=== PATIENT | female | born 1965 | race Caucasian/White ===

== ENCOUNTER 2021-01-14 10:47 | Inpatient (IN) | payer MEDICAID, SELFPAY ==
[2021-01-14] VITALS (81 sets, daily range): BP systolic 53–117; BP diastolic 35–87; PULSE 58–106; RESP 10–25; TEMP 36.4–36.9; O2SAT 77–98; BMI 38.0
--- NOTE | 2021-01-14 11:03 | XR_ITS ---
WS: [id number] Portable AP semiupright chest, 01/14/2021 Clinical Data: dyspnea/cough Comparison: None. Findings: There is a small right pleural effusion. The heart is enlarged. There are calcified granulo mas in both apurva. No nodules, masses or pneumothorax is seen. Monitor leads on the chest wall. There is no pneumonia. The aortic arch and descending aorta show tortuosity. XR/XR chest 1V portable [id number] Impression: 1. Small right pleural effusion. 2. Cardiomegaly and atherosclerosis.
--- NOTE | 2021-01-14 11:03 | CT_ITS ---
WS: [id number] CT HEAD NONCONTRAST HISTORY: altered mental status TECHNIQUE: Contiguous axial imaging performed through the brain in 2.5 mm imaging. Bone and soft tiss ue windows. Sagittal and coronal reformats reviewed. All CT scans at [facility] use at ast one of these dose optimization techniques: automated exposure control; mA and/or kV adjustment pe r patient size (includes targeted exams where dose is matched to clinical indication); or iterative r econstruction. DLP: 1652.7 mGy.cm COMPARISON: None available. Large amount of artifact through the brain in part due to motion. No large areas of hemorrhage. No mi dline shift or mass effect. No loss of the sweet-white matter differentiation. No atrophy or prior infarcts or herniation. Ventricles: Normal size with no hydrocephalus. No inferior displacement of the cerebellar tonsils. Paranasal sinuses: Mucoperiosteal thickening in the ethmoid air cells. Mastoid air cells: Mild thickening of the LEFT mastoid air cells from prior mastoiditis. Calvarium and scalp: Skull is intact with no soft tissue edema or swelling. CT/CT head wo con* [id number] IMPRESSION: 1. Study limited by motion artifact. 2. No evidence for acute intracranial process identified. No hemorrhage or mas s effect.
--- NOTE | 2021-01-14 11:03 | ECG_ITS ---
[facility] Test Date: 2021-01-14 Pat Name: Mya Muñoz Department: Room: Gender: Female Automatic Edger: : 1965 Requested By: Marco Antonio Hobson Order Number: [id number] Reading MD: VASQUEZ CONNORS Measurements Intervals [place] Rate: 99 P: 40 AR: 162 QRS: -25 QRSD: 102 T: 0 QT: 386 QTc: 497 Interpretive Statements SINUS RHYTHM POSSIBLE ANTERIOR MYOCARDIAL INFARCTION [30 ms Q WAVE IN V3/V4, OR R < 0.2 mV IN V4], OF INDETERMINATE AGE INTERPRETATION BASED ON A DEFAULT AGE OF 40 YEARS No previous ECG available for comparison Electronically Signed On 01-14-2021 14:26:55 CDT by VASQUEZ CONNORS [id number]
--- NOTE | 2021-01-14 11:05 | ED_ITS ---
HPI - Altered Mental Status General: Chief Complaint: Altered Mental Status Stated Complaint: overdose/ ams Time Seen by Provider: 01/14/21 10:54 History of Present Illness: HPI narrative: 55-year-old female who is residing at a local homeless correction. She became unresponsive. And EMS was called. She is not responding to verbal or painful stimuli other than the few moans no coherent verbal responses. She has a history of being previously prescribed benzodiazepines specifically Xanax. She has no obvious injuries cannot give us any specific complaints. MD complaint: altered mental status Onset (ago): unknown Severity: severe Consistency of symptoms: Waxing and Waning Review of Systems General: Reports: ROS unobtainable due to mental status Physical Exam HENMT: COMMON NORMALS: normocephalic and atraumatic HEAD & SCALP: normocephalic and atraumatic Neck/C-Spine: COMMON NORMALS: no JVD Resp: COMMON NORMALS: normal respiratory effort, No retractions, No use of accessory muscles and clear to auscultation bilaterally AUSCULTATION: clear to auscultation bilaterally Cardio: COMMON NORMALS: no JVD, regular rate, regular rhythm and No murmurs present (Cardio) RATE: regular rate RHYTHM: regular rhythm GI: COMMON NORMALS: Soft to palpation and No hepatosplenomegaly present AUSCULTATION: Yes normoactive bowel sounds PALPATION: Yes Soft to palpation, No Tenderness to palpation present (GI), No Guarding due to palpation present (GI) and Yes No hepatosplenomegaly present Extremity: COMMON NORMALS: normal to inspection, capillary refill normal, no clubbing, cyanosis or edema, no calf tenderness and no pedal edema Skin: COMMON NORMALS: no rashes or lesions noted GENERAL SKIN EXAM: no rashes or lesions noted Course Vital Signs: Vital signs: Vital Signs Temperature 98.4 F 01/14/21 10:56 Pulse Rate 92 01/14/21 14:00 Respiratory Rate 19 H 01/14/21 14:00 Blood Pressure 94/77 01/14/21 14:00 Pulse Oximetry 96 01/14/21 14:00 MDM - Altered Mental Status MDM Narrative: Medical decision making narrative: Patient placed on BiPAP for assistance with ventilation. She had some sonorous respirations but otherwise is not requiring any intubation at this time. She is positive for benzodiazepines on her drug screen and think she will need to be monitored and then further evaluated as to whether or not this was a suicide attempt. Discussed with hospitalist orders written. Lab Data: Labs: Lab Results 01/14/21 01/14/21 01/14/21 Range/Units 11:00 11:49 11:49 WBC 6.1 (4.0-10.0) 10^3/ uL RBC 4.17 (4.1-5.3) 10^6/u L Hgb 12.7 (11.5-15.3) g/dL Hct 41.4 (37.0-47.0) % MCV 99.3 H (81-99) fL MCH 30.5 (28.0-34.0) pg MCHC 30.7 (30.0-36.0) g/dL RDW 12.7 (12.1-15.1) % Plt Count 190 (130-400) 10^3/c mm MPV 11.2 H (7.4-10.4) fL Neut % (Auto) 60.7 % Lymph % (Auto) 22.5 % [place] % (Auto) 10.3 % Eos % (Auto) 4.7 % Baso % (Auto) 0.8 % Neut # (Auto) 3.72 (1.8-7.7) 10^3/u L Lymph # (Auto) 1.4 (0.8-4.8) 10^3/u L [place] # (Auto) 0.6 (0.2-0.9) 10^3/u L Eos # (Auto) 0.3 (0.0-0.8) 10^3/u L Baso # (Auto) 0.1 (0.0-0.1) 10^3/u L Nucleated RBC % (a uto) 0 % Nucleated RBCs # 0.0 /100WBC Specimen Type Arterial Sample Site Radial, left ABG pH 7.34 L (7.35-7.45) ABG pCO2 50.1 H (35-45) mmHg ABG pO2 73.6 L (80.0-100.0) mmH g ABG HCO3 27.2 H (22-26) mmol/L ABG O2 Saturation 94.3 ABG Base Excess 0.5 (-2.0-2.0) mmol/ L Eyad Test Pos A-a O2 Gradient 12.2 H (5-10) mmHg Hematocrit 48.1 H (37-47) % Hgb O2 Saturation 91.9 L (95-100) % Carboxyhemoglobin 2.0 (0.4-20.1) %THgb Methemoglobin 0.6 (0.4-1.5) % Total Hemoglobin 15.7 (12-16) g/dL Sodium 139.0 139 (131-143) mmol/L Potassium 4.5 4.3 (3.5-5.0) mmol/L Glucose 104.0 92 (70-115) mg/dL Ionized Calcium 1.2 (1.1-1.4) mmol/L O2 Delivery Device Nc O2 Liters/Min 3.0 % FiO2 32.0 % Retail Client Solutions Consultant ID Amh Chloride 106 (98-107) mmol/L Carbon Dioxide 25 (22-29) mmol/L Anion Gap 12.3 (5-19) BUN 20 (6-20) mg/dL Creatinine 0.9 (0.5-0.9) mg/dL GFR Calculation 64.5 L (90-130) mL/min Calculated Osmolal ity 290 (285-295) mOsm/k g Calcium 8.8 (8.5-10.5) mg/dL Magnesium 1.8 (1.7-2.3) mg/dL Total Bilirubin 0.2 (0.15-1.2) mg/dL AST 33 H (0-32) U/L ALT 28 (0-33) U/L Alkaline Phosphata se 96 (35-105) IU/L Creatine Kinase 59 (26-192) U/L Troponin T Baselin e (0-10) ng/L Total Protein 6.5 L (6.6-8.7) g/dL Albumin 3.5 (3.5-5.2) g/dL Globulin 3.0 (1.3-4.6) g/dL Urine Color (Yellow) Urine Appearance (CLEAR) Urine pH (5-7) Ur Specific Gravit y (1.005-1.030) Urine Protein (Negative) Urine Glucose (UA) (Normal) Urine Ketones (Negative) Urine Blood (Negative) Urine Nitrate (Negative) Urine Bilirubin (Negative) Urine Urobilinogen (Negative) mg/dL Ur Leukocyte Willow ase (Negative) Urine Opiates Scre en (Negative) ng/mL Ur Barbiturates Sc reen (Negative) ng/mL Ur Phencyclidine S crn (Negative) ng/mL Ur Amphetamines Sc reen (Negative) ng/mL U Benzodiazepines Scrn (Negative) ng/mL Urine Cocaine Scre en (Negative) ng/mL U Marijuana (THC) Screen (Negative) ng/mL 01/14/21 01/14/21 01/14/21 Range/Units 11:49 12:00 12:00 WBC (4.0-10.0) 10^3/ uL RBC (4.1-5.3) 10^6/u L Hgb (11.5-15.3) g/dL Hct (37.0-47.0) % MCV (81-99) fL MCH (28.0-34.0) pg MCHC (30.0-36.0) g/dL RDW (12.1-15.1) % Plt Count (130-400) 10^3/c mm MPV (7.4-10.4) fL Neut % (Auto) % Lymph % (Auto) % [place] % (Auto) % Eos % (Auto) % Baso % (Auto) % Neut # (Auto) (1.8-7.7) 10^3/u L Lymph # (Auto) (0.8-4.8) 10^3/u L [place] # (Auto) (0.2-0.9) 10^3/u L Eos # (Auto) (0.0-0.8) 10^3/u L Baso # (Auto) (0.0-0.1) 10^3/u L Nucleated RBC % (a uto) % Nucleated RBCs # /100WBC Specimen Type Sample Site ABG pH (7.35-7.45) ABG pCO2 (35-45) mmHg ABG pO2 (80.0-100.0) mmH g ABG HCO3 (22-26) mmol/L ABG O2 Saturation ABG Base Excess (-2.0-2.0) mmol/ L Eyad Test A-a O2 Gradient (5-10) mmHg Hematocrit (37-47) % Hgb O2 Saturation (95-100) % Carboxyhemoglobin (0.4-20.1) %THgb Methemoglobin (0.4-1.5) % Total Hemoglobin (12-16) g/dL Sodium (131-143) mmol/L Potassium (3.5-5.0) mmol/L Glucose (70-115) mg/dL Ionized Calcium (1.1-1.4) mmol/L O2 Delivery Device O2 Liters/Min % FiO2 % Retail Client Solutions Consultant ID Chloride (98-107) mmol/L Carbon Dioxide (22-29) mmol/L Anion Gap (5-19) BUN (6-20) mg/dL Creatinine (0.5-0.9) mg/dL GFR Calculation (90-130) mL/min Calculated Osmolal ity (285-295) mOsm/k g Calcium (8.5-10.5) mg/dL Magnesium (1.7-2.3) mg/dL Total Bilirubin (0.15-1.2) mg/dL AST (0-32) U/L ALT (0-33) U/L Alkaline Phosphata se (35-105) IU/L Creatine Kinase (26-192) U/L Troponin T Baselin e 6 (0-10) ng/L Total Protein (6.6-8.7) g/dL Albumin (3.5-5.2) g/dL Globulin (1.3-4.6) g/dL Urine Color Straw (Yellow) Urine Appearance Clear (CLEAR) Urine pH 5 (5-7) Ur Specific Gravit y 1.010 (1.005-1.030) Urine Protein Neg (Negative) Urine Glucose (UA) Norm (Normal) Urine Ketones Negative (Negative) Urine Blood Neg (Negative) Urine Nitrate Negative (Negative) Urine Bilirubin Neg (Negative) Urine Urobilinogen Norm (Negative) mg/dL Ur Leukocyte Willow ase Negative (Negative) Urine Opiates Scre en Negative (Negative) ng/mL Ur Barbiturates Sc reen Negative (Negative) ng/mL Ur Phencyclidine S crn Negative (Negative) ng/mL Ur Amphetamines Sc reen Negative (Negative) ng/mL U Benzodiazepines Scrn Positive H (Negative) ng/mL Urine Cocaine Scre en Negative (Negative) ng/mL U Marijuana (THC) Screen Negative (Negative) ng/mL Discharge Plan Discharge Patient Disposition: Admitted As Inpatient Admit Provider: Wei Sandy Clinical Impression: Altered mental status, Benzodiazepine overdose Condition: Stable Coding Level of Care Code ED Senior Pl Sql Developer for Chg Fwd Exam Detailed
[2021-01-14 11:17] LABS: ABG PCO2 50.1 mmHg (35-45); ABG PH Result 7.34 (7.35-7.45); Alveolar-Arterial Oxygen Gradi 12.2 mmHg (5-10); Arterial Blood Gas Hematocrit 48.1 % (37-47); Base Excess ABG 0.5 mmol/L (-2.0-2.0); Blood Gas Allen Test Pos; Blood Gas Operator Identificat AMH; Blood Gas Sample Site Radial, left; Blood Gas Sample Type Arterial; HCO3 ABG 27.2 mmol/L (22-26); HGB O2 Sat 91.9 % (95-100); Ionized Calcium Level - ABG 1.2 mmol/L (1.1-1.4); Methemoglobin 0.6 % (0.4-1.5); Oxygen Device NC; Oxygen Saturation ABG 94.3; PO2 ABG 73.6 mmHg (80.0-100.0); Potassium Level - ABG 4.5 mmol/L (3.5-5.0); Total Hemoglobin 15.7 g/dL (12-16)
[2021-01-14 11:59] LABS: Basophils # 0.1 10^3/uL (0.0-0.1); Basophils % 0.8 %; Eosinophils # 0.3 10^3/uL (0.0-0.8); Eosinophils % 4.7 %; Hematocrit 41.4 % (37.0-47.0); Hemoglobin 12.7 g/dL (11.5-15.3); Lymphocytes # 1.4 10^3/uL (0.8-4.8); Lymphocytes % 22.5 %; Mean Corpuscular HGB Conc 30.7 g/dL (30.0-36.0); Mean Corpuscular Hemoglobin 30.5 pg (28.0-34.0); Mean Corpuscular Volume 99.3 fL (81-99); Mean Platelet Volume 11.2 fL (7.4-10.4); Monocytes # 0.6 10^3/uL (0.2-0.9); Monocytes % 10.3 %; Neutrophils # 3.72 10^3/uL (1.8-7.7); Neutrophils % 60.7 %; Nucleated Red Blood Cells % 0 %; Platelet Count 190 10^3/cmm (130-400); Red Blood Count 4.17 10^6/uL (4.1-5.3); Red Cell Distribution Width 12.7 % (12.1-15.1); White Blood Count 6.1 10^3/uL (4.0-10.0)
[2021-01-14 12:08] LABS: Add Urine Microscopic? NO; Charge for UA Resulting for Rev
[2021-01-14 12:11] LABS: Bilirubin Urine Neg (Negative); Blood Urine Neg (Negative); Glucose Urine UA Norm (Normal); Ketones Urine Negative (Negative); Leukocyte Esterase Urine Negative (Negative); Nitrate Urine Negative (Negative); Protein Urine Neg (Negative); Urine Appearance Clear (CLEAR); Urine Color Straw (Yellow); Urobilinogen Urine Norm (Negative); pH Urine 5 (5-7)
[2021-01-14 12:18] LABS: Alanine Aminotransferase 28 U/L (0-33); Albumin Level 3.5 g/dL (3.5-5.2); Alkaline Phosphatase 96 IU/L (35-105); Anion Gap 12.3 (5-19); Aspartate Amino Transferase 33 U/L (0-32); Blood Urea Nitrogen 20 mg/dL (6-20); Calcium 8.8 mg/dL (8.5-10.5); Carbon Dioxide 25 mmol/L (22-29); Chloride 106 mmol/L (98-107); Creatine Phosphokinase 59 U/L (26-192); Glomerular Filtration Rate 64.5 mL/min (90-130); Glucose 92 mg/dL (65-115); Magnesium 1.8 mg/dL (1.7-2.3); Osmolality Calculated 290 mOsm/kg (285-295); Potassium 4.3 mmol/L (3.5-5.1); Sodium 139 mmol/L (136-145); Total Bilirubin 0.2 mg/dL (0.15-1.2); Total Protein 6.5 g/dL (6.6-8.7)
[2021-01-14 12:18] LABS: Amphetamines Screen Urine Negative (Negative); Barbiturates Screen Urine Negative (Negative); Benzodiazepines Screen Urine Positive (Negative); Cocaine Screen Urine Negative (Negative); Opiate Screen Urine Negative (Negative); PCP Screen Urine Negative (Negative); THC Screen Urine Negative (Negative)
[2021-01-14 12:22] LABS: Troponin(5th) Baseline 6 ng/L (0-10)
--- NOTE | 2021-01-14 13:03 | ECG_ITS ---
[facility] Test Date: 2021-01-14 Pat Name: Mya Muñoz Department: Room: Gender: Female Animal Assisted Therapist: : 1965 Requested By: Marco Antonio Hobson Order Number: [id number] Reading MD: VASQUEZ CONNORS Measurements Intervals [place] Rate: 89 P: 62 OK: 167 QRS: -24 QRSD: 102 T: 4 QT: 409 QTc: 499 Interpretive Statements SINUS RHYTHM LOW QRS VOLTAGE IN PRECORDIAL LEADS [QRS DEFLECTION < 1.0 mV IN CHEST LEADS] POSSIBLE ANTERIOR MYOCARDIAL INFARCTION [30 ms Q WAVE IN V3/V4, OR R < 0.2 mV IN V4], OF INDETERMINATE AGE Compared to ECG 01/14/2021 11:25:40 Low QRS voltage now present Myocardial infarct finding still present Electronically Signed On 01-14-2021 14:28:56 CDT by VASQUEZ CONNORS [id number] f
--- NOTE | 2021-01-14 14:09 | P.HP_ITS ---
Providers/Chief Complaint Admitting Physician: Wei Sandy MD Chief Complaint: overdose/ ams History of Present Illness 55-year-old female with no known medical history resident of a local homeless half-way was found unresponsive at her half-way.EMS was called for the same.Upon arrival in the ER she was not responding to any verbal or painful stimulus.She was worked up for the Ac encephalopathy. Pertinent Imaging studies: C.T head without Contrast :No acute intracranial pathology. Xray chest : No infiltrates. Small rt pleural effusion Pertinent Labs : CBC :Normal, CMP:Normal , Troponin :Normal, Urine analysis :Clean, Utox:BZD positive. ABG :Ph : 7.34, PCO2:50, PO2: 73 @FIO2: 32 % Review of Systems General: Reports: ROS unobtainable due to mental status Medications/Allergies Home Medications Medication Instructions Recorded Confirmed Last Taken Type Unable to Assess 01/14/21 01/14/21 Unknown History Allergies Allergy/AdvReac Type Severity Reaction Status Date / Time No Known Allergies Allergy Verified 01/14/21 10:55 Vitals/I&O/Wt Last Vital Signs Temp 98.4 F 01/14/21 10:56 Pulse 92 01/14/21 14:00 Resp 19 H 01/14/21 14:00 BP 94/77 01/14/21 14:00 Pulse Ox 96 01/14/21 14:00 Weight last 48 hrs Weight 113.398 kg Physical Exam HENMT: COMMON NORMALS: normocephalic and atraumatic HEAD & SCALP: normocephalic and atraumatic EXTERNAL EAR: Yes external ears normal Resp: COMMON NORMALS: clear to auscultation bilaterally AUSCULTATION: clear to auscultation bilaterally Cardio: COMMON NORMALS: regular rate, regular rhythm, S1 normal heart sound present, S2 normal heart sound present, No gallops present (Cardio), No murmurs present (Cardio), No rub (Cardio) and Peripheral pulses 2+ throughout RATE: regular rate RHYTHM: regular rhythm HEART SOUNDS: S1 normal heart sound present and S2 normal heart sound present PERIPHERAL PULSES: Peripheral pulses 2+ throughout GI: COMMON NORMALS: Normal to inspection, nondistended, normoactive bowel sounds present, Soft to palpation, non-tender, No hepatosplenomegaly present and no masses AUSCULTATION: Yes normoactive bowel sounds PALPATION: Yes Soft to palpation and Yes No hepatosplenomegaly present RECTAL EXAM: deferred Extremity: COMMON NORMALS: no clubbing, cyanosis or edema and no pedal edema Data : 01/14/21 11:49 01/14/21 11:49 A&P Assessment and plan (1) Acute metabolic encephalopathy: Ac Metabolic encephalopathy 2/2 to drug overdose. Patient has h/o BZD (Xanax Use ) in past. Utox is positive for BZD. Currently she is doing well on BIPAP,She is able to protect her airways. Continue to monitor for now. Monitor ABG Status: Acute (2) Hypercapnic respiratory failure, chronic: Chronic compensated Hypercapnic R/F Currently she is on BIPAP. Status: Acute (3) Benzodiazepine overdose: Once she is more active.Will enquire about the possible overdose ( intentional v/s accidental ) Status: Acute Attestations Medical Necessity Statement*: Patient needs to be in hospital for the management of ac metabolic encephalopathy anticipated LOS greater then 2 midnights. Coding Level of Care Code Acute Well Logging Operator Mud Analysis for alisha Rowe Diagnoses Acute metabolic encephalopathy G93.41 Hypercapnic respiratory failure, chronic J96.12 Benzodiazepine overdose T42.4X1A
--- NOTE | 2021-01-14 14:13 | PC.NURSE ---
Report called to [facility]; advised room is not ready and they will call when ready.
[2021-01-14 14:22] LABS: Troponin 5 2HR 7.24 ng/L (0-10); Troponin 5 2HR Delta 1.24 ABS# (0-10)
[2021-01-14] MEDS: enoxaparin 40 mg/0.4 mL Syringe SUBCUT (16:13)
[2021-01-14] MEDS: dextrose 5%-sod chloride 0.9% 1,000 ML 50 ML IV (16:13)
[2021-01-14 18:10] LABS: Troponin 5 6HR Delta 0 ng/L (0-12)
[2021-01-14] MEDS: oxyCODONE-APAP 5-325 mg Tablet 1 TAB PO (22:07)
[2021-01-15] VITALS (44 sets, daily range): BP systolic 77–118; BP diastolic 43–80; PULSE 79–96; RESP 13–29; TEMP 36.4; O2SAT 70–97
--- NOTE | 2021-01-15 05:03 | PC.NURSE ---
Patient Left Facility AMA Patient very anxious and restless, calling out for the nurse. This nurse went in to assess patient needs, upon entering the room nurse noticed patient had pulled out her second IV which was in the left AC, catheter was intact upon inspection. Patient pulled out right hand IV earlier in evening, catheter intact upon inspection. After assessing former IV site patient stated to the nurse, she was going to go smoke a cigarette and take 5 minutes . Nurse informed patient that hospital grounds are tobacco free and smoking is prohibited. Patient then got upset, raised her voice and stated, I am 55 years old and I do not need permission from you to smoke a cigarette that I bought with my money. If you wont let me leave to go smoke I will check myself out of here AMA. Bring me the paper right now and I'll sign it . Nurse tried to deescalate the situation and once again reinforced that hospital grounds are tobacco free. This nurse asked the charge nurse to speak with the patient and ask the patient to consider remaining in the hospital, as well as providing information about patient current illness/risks of leaving AMA. Patient remained upset, with a raised voice yelling at the charge nurse. Called Dr. Lorenzo to notify her of patient request to leave AMA. Dr. Lorenzo came to visit patient in ICU and discuss the potential risks of leaving AMA/current illness, patient was still upset and wanted to leave. Patient is alert and oriented x4, Dr. Lorenzo gave approval for patient to sign AMA papers and leave against medical advice. This nurse discontinued monique catheter at 0430, catheter tip was intact. Patient belongings were provided to the patient at time of discharge 0440 which included clothes. Patient stated she had a purse with her upon admission to the facility, this nurse checked documentation for patient belongings and did not see anywhere that patient had a purse with her upon admission to facility. Went into the patient room with windows security engineer and a wheelchair to escort patient out of the facility, when she saw the windows security engineer she yelled, I will not be going anywhere with you! Get back in the sand box . Nurse attempted to deescalate situation by stating that she would be in attendance of the windows security engineer to escort patient out of facility. Patient yelled that, I will walk myself out of here . Patient escorted to exit by nurse. Technology Training Associate aware of situation.
--- NOTE | 2021-01-15 05:04 | PM.EVENT ---
Event Note Event Note: Called that patient wanted to leave the hospital. She had been alert for a while. I ordered food for her earlier in the evening which she tolerated. Yet she was angry stating that we had not fed her and given her her usual medications. Reviewed with her that she had come in unresponsive and we were not able to get history from her. She told me that we have her records but the first visit that I am able to find of her being at our facility in either current or prior [employer] system is the day of admission. On further questioning she indicates that she has been at [facility] before. I suspect that she may have thought she had been there at first. She describes a history of PTSD and not liking the sounds associated with being in the hospital. She denied suicidal or homicidal thoughts or plans on repeated questioning. She was aware of the time of day. She knew the year. She knew the president. She knew she was in a [facility] in [facility] with [facility] idiots taking care of her. Her vital signs were normal. She was not requiring oxygen. Review of prior labs indicated primarily the hypercapnia as an abnormality. With current mentation status post BiPAP therapy this should have been resolved. She has been awake and interacting with staff much of the night. She will not provide medical or other history, nor any suggestions of what it would take to make her stay more comfortable, preferring instead to leave AGAINST MEDICAL ADVICE. She indicates that she has been in multiple places in a short period of time and she can handle herself. DC written.
== END 2021-01-15 04:40 | disposition left against medical advice (07) | DRG 917 ==
LOC: ER 12:59 → ICU 13:52
PROVIDERS: Admitting Provider Internal Medicine; Emergency Provider Family Medicine; Visit Provider Internal Medicine
DX: T42.4X1A Poisoning by benzodiazepines, accidental (unintentional), initial encounter (principal); G92 Toxic encephalopathy; J96.12 Chronic respiratory failure with hypercapnia; Z59.0 Homelessness; Z53.29 Procedure and treatment not carried out because of patient's decision for other reasons
CPT/HCPCS: 36415; 36600; 51702; 70450; 71045; 80051; 80053; 80306; 81003; 82330; 82550; 82805; 83735; 84484; 85025; 93005; 94660; 96360; 96372; 99291; J1650